=== PATIENT | male | born 1950 | race Caucasian/White ===

== ENCOUNTER 2016-10-18 13:02 | Day surgery (SDC) | payer OTHER ==
[2016-10-18 14:12] VITALS: BP 167/97; PULSE 64; RESP 14; TEMP 97.8; O2SAT 98
[2016-10-18 15:15] VITALS: BP 163/90; PULSE 67; RESP 17; TEMP 97.7; O2SAT 97
[2016-10-18] MEDS ORDERED: LIDOCAINE HCL 1% 30 ML VIAL ONE (15:23)
[2016-10-18] MEDS ORDERED: SODIUM BICARBONATE 8.4% INJ 50 ML ONE (15:23)
[2016-10-18 15:30] VITALS: BP 150/70; PULSE 65; RESP 18; O2SAT 98
--- NOTE | 2016-10-18 16:21 | RADRPT ---
EXAM DATE/TIME: 10/18/2016 13:46 [facility] COMPARISON: No previous studies available for comparison. EXTERNAL COMPARISON: [facility], CT SOFT TISSUE NECK, W/ CONTRAST, Sep 04 2016 INDICATIONS : Palpable left lymph node. MEDICAL HISTORY : Back pain. SURGICAL HISTORY : Bilateral knee replacement. ENCOUNTER: Initial ACUITY: 1 day PAIN SCORE: 2/10 LOCATION: Left neck. ORGAN: Left lymph node SPECIMENS: Five core specimen(s) submitted for pathologic evaluation. DEVICE: 18 gauge Temno needle Post procedure scanning reveals no hematoma or other complication. TECHNIQUE: 1. Ultrasound guidance for needle biopsy. 2. Needle biopsy. The risks, benefits, and alternatives to ultrasound guided needle biopsy were explained to the patien t in detail including the risk of bleeding and infection. Written and verbal informed consent was ob tained. With the patient on the ultrasound table, images were obtained. There are multiple lymph nodes in th e left neck in the levels 2, 3 and 4 location. One of the larger lymph nodes in the inferior left nec k was localized for biopsy. This lymph node measured approximately 2.4 x 1.9 cm. The abnormal lymph n odes demonstrates cystic areas. Overlying skin was prepped and draped in the usual sterile fashion an d Lidocaine was utilized as a local anesthetic. A needle was advanced into the identified target and the number of specimens as above obtained and cortes bmitted for pathologic evaluation. The patient tolerated the procedure well and left the ultrasound suite in stable condition. CONCLUSION: Uncomplicated ultrasound guided needle biopsy of an abnormal left neck lymph node. Joseph Wolf MD on October 18, 2016 at 16:19 Board Certified Radiologist. This report was verified electronically.
[2016-11-20] MEDS ORDERED: VITA1000 PO (09:21)
[2016-11-20] MEDS ORDERED: VALS1TAB65 PO (09:21)
[2016-11-21] MEDS ORDERED: ASPI81TA11 PO (07:28)
== END 2016-10-18 15:35 | disposition home or self-care (01) ==
LOC: HRAD 13:02 → HRIP 13:03 → HRAD 15:35
PROVIDERS: ATTEND Otolaryngology
DX: R59.1 Generalized enlarged lymph nodes (principal)
CPT/HCPCS: 38505; 76942; 87015; 87070; 87102; 87116; 87176; 87205; 87206; 88305; 88341; 88342

== ENCOUNTER → 2016-11-21 | Day surgery (SDC) | payer MEDICARE, OTHER ==
[~2016-11-21] VITALS: Ht 172.7 cm; Wt 88.8 kg
[~2016-11-21] MED LIST: *morphine SULFATE 8 MG/ML PERIprocedure ONLY ONE; ACETAMINOPHEN 325MG/HYDROcodone 7.5MG/15ML UDC PO PRN; AMPICILLIN/SULBAC 3 GM/NS 100 ML IV SCH; ASPI81TA11 PO; CEPH-460 PO; FAMOTIDINE 20 MG/2 ML VIAL ONE; INSULIN HUMAN REGULAR 1,000 UNITS/10 ML VIAL SQ PRN; LACTATED RINGER'S 1000 ML INJ 1,000 ML IV SCH; LACTATED RINGER'S 1000 ML IV SCH; MAGICADU2 SWISH-SWAL; METOPROLOL TARTRATE 25 MG TAB PO PRN; MIDAZOLAM HCL 2 MG/2 ML VIAL ONE; NEOSTIGMINE 3 MG/3 ML SYR IV ONE; OMEP40CA2 PO; ONDANSETRON HCL 4 MG/2 ML VIAL IV PUSH ONE; PERC7.5T13 PO; PHENYLEPH/NS 1000 MCG/10 ML SYR IV ONE; PROM25TA5 PO; PROPOFOL 200 MG/20 ML AMP IV ONE; SODIUM CHLORID 0.9% 500 ML IV SCH; VALS1TAB65 PO; VITA1000 PO; ZANT150T2 PO
[2016-11-21 07:30] VITALS: BP 150/88; PULSE 63; RESP 20; TEMP 97.8; O2SAT 97
[2016-11-21] MEDS: OXYMETAZOLINE HCL 0.05% 15 ML NASAL SPRAY ONE ×2 (07:48→09:02)
[2016-11-21 11:25] VITALS: BP 163/83; PULSE 60; RESP 16; TEMP 98.9; O2SAT 97
--- NOTE | 2016-11-21 22:46 | EKG ---
Date Performed: 11/21/2016 Time Performed: 07:06:16 PTAGE: 66 years EKG: Sinus rhythm NORMAL ECG NO PREVIOUS TRACING DOCTOR: Shama Vee Interpretating Date/Time 11/21/2016 22:44:25
--- NOTE | 2016-12-10 08:25 | MP ---
cc: JOSE WHITTAKER M.D. DATE OF SURGERY: 11/21/[address] 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 OPERATION PERFORMED 1. Survey biopsies of nasopharynx, bilateral. 2. Bilateral oropharyngeal biopsies. 3. Bilateral base of tongue biopsies. 4. Bilateral floor of mouth biopsies. INDICATIONS Yao Bradford is a 62-year-old man diagnosed with metastatic squamous cell carcinoma of the left neck. Examination reveals no obvious site of primary. DESCRIPTION OF OPERATION The patient was taken to OR #2 and placed in the supine position. Following induction of general anesthesia and intubation the nose was packed bilaterally with cotton pledgets saturated in 0.05% Oxymetazoline and then a McIvor mouth gag was put in place. The packing was removed and using mirror examination in the oropharynx for guidance, biopsies were obtained from the bilateral fossa of Rosenmueller with a transnasal approach using Blakesley forceps. These biopsies were separately labeled for left and right and submitted for histopathology. When this was completed the tonsil biopsies were obtained. These were obtained using Blakesley forceps and a 15 blade scalpel. Fragments of tissue were obtained from the middle and inferior pole of the tonsil tissue bilaterally. These were passed off the field labeled left and right for histological examination. The mouth gag was then removed and the base of tongue biopsies were obtained via a Jako laryngoscope. Fragments of soft tissue were taken using the Blakesley forceps and a 15 blade scalpel. These were labeled left and right and then submitted for histologic examination. Lastly, the same was used to obtain bilateral floor of mouth biopsies. These were taken at the junction of the ventral tongue and the floor of mouth. These were labeled left and right and were submitted for histologic examination. The procedure was then terminated. The patient was reversed from anesthesia and taken to recovery in good condition. There were no complications. Blood loss was 20 mL. MD LA Soler/ADDISON /5:54 AM /8:15 AM
== END | disposition home or self-care (01) ==
LOC: HSDC 06:36
PROVIDERS: ATTEND Otolaryngology
DX: C76.0 Malignant neoplasm of head, face and neck (principal); R22.1 Localized swelling, mass and lump, neck; I10 Essential (primary) hypertension
CPT/HCPCS: 00320; 31535; 88304; 88305; 93005; J0295; J2250; J2270; J2370; J2405; J2710; J3010; J7120

== ENCOUNTER 2017-02-05 14:26 | Emergency (ER) | payer MEDICARE, OTHER ==
[~2017-02-05] VITALS: Ht 175.3 cm; Wt 77.0 kg
[~2017-02-05 14:26] MED LIST changes: -*morphine SULFATE 8 MG/ML PERIprocedure ONLY ONE; -ACETAMINOPHEN 325MG/HYDROcodone 7.5MG/15ML UDC PO PRN; -AMPICILLIN/SULBAC 3 GM/NS 100 ML IV SCH; -CEPH-460 PO; -FAMOTIDINE 20 MG/2 ML VIAL ONE; -INSULIN HUMAN REGULAR 1,000 UNITS/10 ML VIAL SQ PRN; -LACTATED RINGER'S 1000 ML INJ 1,000 ML IV SCH; -LACTATED RINGER'S 1000 ML IV SCH; -MAGICADU2 SWISH-SWAL; -METOPROLOL TARTRATE 25 MG TAB PO PRN; -MIDAZOLAM HCL 2 MG/2 ML VIAL ONE; -NEOSTIGMINE 3 MG/3 ML SYR IV ONE; -OMEP40CA2 PO; -ONDANSETRON HCL 4 MG/2 ML VIAL IV PUSH ONE; -PERC7.5T13 PO; -PHENYLEPH/NS 1000 MCG/10 ML SYR IV ONE; -PROM25TA5 PO; -PROPOFOL 200 MG/20 ML AMP IV ONE; -SODIUM CHLORID 0.9% 500 ML IV SCH; -ZANT150T2 PO
[2017-02-05 14:29] VITALS: BP 132/68; PULSE 85; RESP 16; TEMP 98.7; O2SAT 98
--- NOTE | 2017-02-05 14:31 | PD ---
Physical Exam Time Seen by Provider: 14:29 Narrative 66 y/o male presents for evaluation of nausea, vomiting, h/a, feels dehydrated. Recent chemotherapy treatment for SCC of the throat per patient. Vital signs reviewed. Seen at triage desk. awaiting bed placement. Data Data Last Documented VS Vital Signs Date Time Temp Pulse Resp B/P Pulse Ox O2 Delivery O2 Flow Rate FiO2 02/05/17 14:29 98.7 85 16 132/68 98 MDM Medical Record Reviewed: Yes Supervised Visit with CATRACHO: No Mehdi Zamora February 05, 2017 14:31
[2017-02-05] MEDS ORDERED: CEFEPIME INJ 2,000 MG in SODIUM CHLORIDE 0.9% INJ 100 ML IV STA (14:54)
[2017-02-05] MEDS ORDERED: SODIUM CHLOR 0.9% 1000 ML INJ 1,000 ML IV ONE ×2 (15:00)
[2017-02-05] MEDS ORDERED: OMEP40CA2 PO (15:07)
[2017-02-05] MEDS ORDERED: ZANT150T2 PO (15:07)
[2017-02-05] MEDS ORDERED: MAGICADU2 SWISH-SWAL (15:07)
[2017-02-05] MEDS ORDERED: PROM25TA5 PO (15:07)
[2017-02-05] MEDS ORDERED: PERC7.5T13 PO (15:08)
[2017-02-05 15:45] VITALS: RESP 18; O2SAT 98
--- NOTE | 2017-02-05 15:46 | RADRPT ---
EXAM DATE/TIME: 02/05/2017 15:23 [facility] COMPARISON: No previous studies available for comparison. INDICATIONS : Weakness and fever. MEDICAL HISTORY : Carcinoma, esophageal. SURGICAL HISTORY : Bilateral knee replacement. ENCOUNTER: Initial ACUITY: 1 day PAIN SCORE: 0/10 LOCATION: Bilateral chest FINDINGS: 2 frontal views of the chest demonstrate the lungs to be symmetrically aerated without evidence of ma ss, infiltrate or effusion. The cardiomediastinal contours are unremarkable. Osseous structures are intact. CONCLUSION: No acute disease. Eh Marino Jr., MD on February 05, 2017 at 15:43 Board Certified Radiologist. This report was verified electronically.
[2017-02-05 15:52] LABS: AUTOMATED NEUTROPHIL # 1.6 TH/MM3 (1.8-7.7); BASOPHIL % 0.6 % (0.0-2.0); EOSINOPHIL % 0.7 % (0.0-4.0); HEMATOCRIT 33.5 % (39.0-51.0); HEMO FLAGS DIFF FINAL; LYMPH % 10.8 % (9.0-44.0); LYMPHOCYTE # 0.3 TH/MM3 (1.0-4.8); MEAN CELL VOLUME 88.7 FL (80.0-100.0); MONO % 18.2 % (0.0-8.0); NEUT % 69.7 % (16.0-70.0); PLATELET COUNT 160 TH/MM3 (150-450); RED BLOOD COUNT 3.78 MIL/MM3 (4.50-5.90); RED CELL DISTRIBUTION WIDTH 12.5 % (11.6-17.2); WHITE BLOOD COUNT 2.4 TH/MM3 (4.0-11.0)
[2017-02-05 16:04] LABS: ANION GAP 14 MEQ/L (5-15); AST (GOT) 17 U/L (15-37); BICARBONATE 28.2 MEQ/L (21.0-32.0); BLOOD UREA NITROGEN 26 MG/DL (7-18); CHLORIDE 95 MEQ/L (98-107); GLOMERULAR FILTRATION RATE 60 ML/MIN (>89); POTASSIUM 3.9 MEQ/L (3.5-5.1); SODIUM (NA) 137 MEQ/L (136-145)
[2017-02-05 16:07] LABS: ALKALINE PHOSPHATASE 63 U/L (45-117); ALT (GPT) 20 U/L (12-78); TOTAL BILIRUBIN ADULT 0.5 MG/DL (0.2-1.0)
[2017-02-05 17:17] LABS: BLOOD, URINE NEG (NEG); GLUCOSE,URINE NEG (NEG); HYALINE CAST, URINE 4 /lpf (RARE); KETONE, URINE 80 mg/dL (NEG); MUCUS URINE FEW /lpf (OCC); NITRITE,URINE NEG (NEG); PH, URINE 5.5 (5.0-8.5); SQUAMOUS EPITHELIAL CELL URINE <1 /hpf (0-5); URINE COLOR YELLOW (YELLW/STRAW)
[2017-02-05 17:19] LABS: COMMENT (UR) CATH-CULT NOT IND; CULTURE IF INDICATED CATH CULTURE NOT IND
[2017-02-05] MEDS ORDERED: CEPH-460 PO (17:28)
--- NOTE | 2017-02-05 17:28 | PD ---
HPI Chief Complaint: Medical Clearance Time Seen by Provider: 14:34 Travel History International Travel<30 days: No Contact w/Intl Traveler<30days: No Traveled to known affect area: No History of Present Illness HPI This is a 66-year-old male who presents to the emergency department with a history of squamous cell carcinoma of the throat currently on chemotherapy having received a treatment one week ago presenting with fever and lethargy. His family says he's not been eating and drinking very much. This morning he had a temperature of 101.4 which prompted them to bring him to the emergency department. He has had a dry cough but no rhinorrhea, or diarrhea. He did have one episode of vomiting this morning after taking Tylenol for his fever. He says he takes Percocet at home but it's been helping less and less with his pain. He denies any shortness of breath. PFSH Past Medical History Cancer: Yes (squamous cell head/neck/throat) Cardiovascular Problems: Yes Chemotherapy: Yes (finished 02/01/17) Diabetes: No Endocrine: No Genitourinary: No Hepatitis: No Hiatal Hernia: No Hypertension: Yes Immune Disorder: No Musculoskeletal: Yes (back pain,) Neurologic: Yes (tingling in r hand) Psychiatric: No Reproductive: No Respiratory: No Thyroid Disease: No Past Surgical History AICD: No Joint Replacement: Yes (knees bilateral) Pacemaker: No Tonsillectomy: Yes Other Surgery: Yes Social History Alcohol Use: No Tobacco Use: No Substance Use: No Allergies-Medications (Allergen,Severity, Reaction): Coded Allergies: No Known Allergies (Unverified , 02/05/17) Reported Meds & Prescriptions Reported Meds & Active Scripts Active Reported Percocet (Oxycodone-Acetaminophen) 7.5-325 mg Tab 1 Tab PO Q4H PRN Magic Mouthwash Adult Liq (Multi-Ingredient Mouthwash/Gargle) 120 Ml Susp 5 Ml SWISH-SWAL Q4HR PRN Each 5mL contains: Nystatin 200,000units, Diphenhydramine 4.25mg, Viscous Lidocaine 10mg, Mcleod syrup 0.8 mL Phenergan (Promethazine HCl) 25 Mg Tab 25 Mg PO Q8HR PRN Zantac (Ranitidine HCl) 150 Mg Tab 150 Mg PO DAILY Omeprazole 40 Mg Cap 40 Mg PO DAILY Valsartan 160 Mg Tab 160 Mg PO DAILY Review of Systems Except as stated in HPI: all other systems reviewed are Neg Physical Exam Narrative GENERAL:Well appearing, no acute distress SKIN: Erythema and warmth of the skin on the anterior neck and upper chest wall HEAD: Atraumatic. Normocephalic. EYES: Pupils equal and round. No injection or drainage. ENT: Moist mucous membranes NECK: Trachea midline. CARDIOVASCULAR: Regular rate and rhythm. No murmur appreciated. RESPIRATORY: Clear to auscultation. Breath sounds equal bilaterally. GASTROINTESTINAL: Abdomen soft, non-tender, nondistended. MUSCULOSKELETAL: No obvious deformities. NEUROLOGICAL: Awake and alert. No obvious cranial nerve deficits. Moving all extremities. PSYCHIATRIC: Appropriate mood and affect; insight and judgment normal. Data Data Last Documented VS Vital Signs Date Time Temp Pulse Resp B/P Pulse Ox O2 Delivery O2 Flow Rate FiO2 02/05/17 15:45 18 98 Room Air 02/05/17 14:29 98.7 85 132/68 Orders Complete Blood Count With Diff (02/05/17 14:54) Comprehensive Metabolic Panel (02/05/17 14:54) Lactic Acid Sepsis Protocol (02/05/17 14:54) Urinalysis - C+S If Indicated (02/05/17 14:54) Blood Culture (02/05/17 14:54) Chest, Single Ap (02/05/17 14:54) Blood Glucose (02/05/17 14:54) Ecg Monitoring (02/05/17 14:54) Iv Access Insert/Monitor (02/05/17 14:54) Oximetry (02/05/17 14:54) Oxygen Administration (02/05/17 14:54) Cefepime Inj (Maxipime Inj) (02/05/17 14:54) Sodium Chlor 0.9% 1000 Ml Inj (Ns 1000 M (02/05/17 15:00) Sodium Chlor 0.9% 1000 Ml Inj (Ns 1000 M (02/05/17 15:00) Labs Laboratory Tests Test 02/05/17 02/05/17 15:05 16:40 White Blood Count 2.4 TH/MM3 Red Blood Count 3.78 MIL/MM3 Hemoglobin 11.7 GM/DL Hematocrit 33.5 % Mean Corpuscular Volume 88.7 FL Mean Corpuscular Hemoglobin 31.0 PG Mean Corpuscular Hemoglobin 35.0 % Concent Red Cell Distribution Width 12.5 % Platelet Count 160 TH/MM3 Mean Platelet Volume 7.5 FL Neutrophils (%) (Auto) 69.7 % Lymphocytes (%) (Auto) 10.8 % Monocytes (%) (Auto) 18.2 % Eosinophils (%) (Auto) 0.7 % Basophils (%) (Auto) 0.6 % Neutrophils # (Auto) 1.6 TH/MM3 Lymphocytes # (Auto) 0.3 TH/MM3 Monocytes # (Auto) 0.4 TH/MM3 Eosinophils # (Auto) 0.0 TH/MM3 Basophils # (Auto) 0.0 TH/MM3 CBC Comment DIFF FINAL Differential Comment Sodium Level 137 MEQ/L Potassium Level 3.9 MEQ/L Chloride Level 95 MEQ/L Carbon Dioxide Level 28.2 MEQ/L Anion Gap 14 MEQ/L Blood Urea Nitrogen 26 MG/DL Creatinine 1.20 MG/DL Estimat Glomerular Filtration 60 ML/MIN Rate Random Glucose 83 MG/DL Lactic Acid Level 1.0 mmol/L Calcium Level 8.7 MG/DL Total Bilirubin 0.5 MG/DL Aspartate Amino Transf 17 U/L (AST/SGOT) Alanine Aminotransferase 20 U/L (ALT/SGPT) Alkaline Phosphatase 63 U/L Total Protein 7.2 GM/DL Albumin 3.3 GM/DL Urine Color YELLOW Urine Turbidity CLEAR Urine pH 5.5 Urine Specific Leo 1.023 Urine Protein TRACE mg/dL Urine Glucose (UA) NEG mg/dL Urine Ketones 80 mg/dL Urine Occult Blood NEG Urine Nitrite NEG Urine Bilirubin NEG Urine Urobilinogen LESS THAN 2.0 MG/DL Urine Leukocyte Esterase NEG Urine RBC LESS THAN 1 /hpf Urine WBC 2 /hpf Urine Squamous Epithelial <1 /hpf Cells Urine Hyaline Casts 4 /lpf Urine Mucus FEW /lpf Microscopic Urinalysis Comment CATH-CULT NOT IND MDM Medical Decision Making Medical Screen Exam Complete: Yes Emergency Medical Condition: Yes Interpretation(s) Afebrile, no tachycardia, normotensive Chest x-ray: No acute process White blood cell count is 2.4 ANC is 1600 Electrolytes are reassuring Lactic acid is normal Urinalysis is negative for infection Chest x-ray: No acute process Differential Diagnosis Neutropenic fever, sepsis, pneumonia, urinary tract infection, cellulitis Narrative Course This is a 66-year-old male who presents to the emergency department on chemotherapy for squamous cell carcinoma of the throat with fever and malaise. He was placed on a monitor and an IV was established. Labs demonstrate an ANC of 1600. He was given a single dose of cefepime. Urinalysis and chest x-ray are reassuring. I spoke to the patient's medical oncologist who recommended that we discharge him on Keflex for possible cellulitis given his skin breakdown on the neck and chest. Otherwise patient is nontoxic appearing and feels much better after 2 L of IV hydration. He'll be discharged home. Diagnosis Primary Impression: Fever Qualified Code: R50.9 - Fever, unspecified fever cause Patient Instructions: General Instructions Additional Instructions: If you develop severe chest pain, shortness of breath, sweating, lightheadedness , dizziness or difficulty breathing return to the emergency department immediately. Followup with your primary care physician in 2-3 days if your symptoms are not resolved. Med/Other Pt SpecificInfo: Prescription(s) given Scripts Cephalexin (Keflex)500 Mg Pid508 Mg PO Q6H 7 Days Ref 0 Prov:Cassandra Nolasco MD 02/05/17 Disposition: 01 DISCHARGE HOME Condition: Stable Cassandra Nolasco MD February 05, 2017 17:28
== END 2017-02-05 18:45 | disposition home or self-care (01) ==
LOC: NEPC 14:26
DX: R50.9 Fever, unspecified (principal); R11.2 Nausea with vomiting, unspecified; C14.0 Malignant neoplasm of pharynx, unspecified; I10 Essential (primary) hypertension
CPT/HCPCS: 71010; 80053; 81001; 83605; 85025; 87040; 96361; 96365; 99283; J0692; J7030